=== PATIENT | male | born 1995 | race Two or more races ===

== ENCOUNTER 2019-03-22 16:53 | Emergency (ER) | payer OTHER ==
[2019-03-22 17:05] VITALS: BP 148/61
[2019-03-22] MEDS ORDERED: CEFTRIAXONE INJ 250 MG VIAL IM ONE (17:22)
[2019-03-22] MEDS ORDERED: LIDOCAINE 1% INJ-PF (10 MG/ML) 30 ML SDV INJ ONE (17:22)
[2019-03-22] MEDS ORDERED: AZITHROMYCIN 250 MG TABLET PO ONE (17:22)
--- NOTE | 2019-03-22 17:32 | ER Document Report ---
HPI - HPI Time Seen by Provider: 03/22/19 17:30 Notes: Patient is a 23-year-old male with no significant past medical history who presents complaining of a rash underneath the foreskin of his penis and to the head of the penis that is been present for 9 days. Patient states that he was having unprotected sex a couple weeks ago. He is otherwise able to eat and drink without difficulty. He is urinating normally and having normal bowel movements. He does not have any testicular pain or drainage from his urethra. He has not noticed any other rash or swelling. Patient states he does have a burning sensation occasional itching to that area. Patient states that it does feel kind of "raw." Denies drug allergies. No other concerns or complaints. Denies any headache, fever, neck pain, red eye, URI, sore throat, chest pain, palpitations, syncope, cough, shortness of breath, wheeze, dyspnea, abdominal pain, nausea/vomiting/diarrhea, urinary retention, dysuria, hematuria. - ROS Systems Reviewed and Negative: Yes All other systems reviewed and negative Past Medical History - Social History Smoking Status: Unknown if Ever Smoked Family History: Reviewed & Not Pertinent Vertical Provider Document - CONSTITUTIONAL Agree With Documented VS: Yes Notes: PHYSICAL EXAMINATION: GENERAL: Well-appearing, well-nourished and in no acute distress. HEAD: Atraumatic, normocephalic. EYES: Pupils equal round and reactive to light, extraocular movements intact, sclera anicteric, conjunctiva are normal. ENT: Nares patent and without discharge. oropharynx clear without exudates. No tonsilar hypertrophy or erythema. Moist mucous membranes. NECK: Normal range of motion, supple without lymphadenopathy LUNGS: Breath sounds clear to auscultation bilaterally and equal. No wheezes rales or rhonchi. HEART: Regular rate and rhythm without murmurs, rubs, gallops. ABDOMEN: Soft, nontender, nondistended abdomen. No guarding, no rebound. Normal bowel sounds present. No CVA tenderness bilaterally. : uncircumcised. There is a raw erythemic area with scant white drainage noted to to the neck/head of the penis with mild swelling associated. No urethral compromise or discharge. No ulceration or obvious herpetic lesion noted. Non-tender to palp throughout including scrotum/testicles. No inguinal hernia/adenopathy. Musculoskeletal: FROM to passive/active. Strength 5+/5. Extremities: No cyanosis, clubbing, or edema b/l. Peripheral pulses 2+. Capillary refill less than 3 seconds. NEUROLOGICAL: Normal speech, normal gait. PSYCH: Normal mood, normal affect. SKIN: see above Course - Re-evaluation Re-evalutation: 03/22/19 17:36 Patient is an afebrile, well-hydrated, 23-year-old male who presents with suspected candidal balanitis. Vitals are acceptable without significant tachycardia, tachypnea, or hypoxia. PE is otherwise unremarkable. Patient is nontoxic-appearing and is tolerating p.o. without difficulty. He did not have any lesions consistent with syphilis or herpes. No cankers noted. Chlamydia gonorrhea tests are pending per patient's request. He was also given Zithromax and Rocephin. Low suspicion for any testicular torsion, necrotizing fasciitis, SJS, SSS, drug reaction, sepsis, meningitis, syphilis, Lyme disease, [place] spotted fever, or other systemic emergent condition at this time. Patient aware that condition can change from initial presentation and he needs to monitor symptoms closely and seek medical attention with any acute changes. I will send him home with a prescription for clotrimazole. Conservative measures otherwise for symptoms. Recheck with your PCM in 2 to 3 days. Consider consult with urology. Check in with health department for further testing. Return to the ED with any other worsening/concerning symptoms as reviewed. Patient is in agreement. - Vital Signs Vital signs: Temp Pulse Resp BP Pulse Ox 98.5 F 78 16 148/61 H 100 03/22/19 17:04 03/22/19 17:04 03/22/19 17:04 03/22/19 17:04 03/22/19 17:04 Discharge - Discharge Clinical Impression: Candidal balanitis, Rash and nonspecific skin eruption Condition: Stable Disposition: HOME, SELF-CARE Additional Instructions: Keep the skin clean and dry Wash with soap and water Tylenol/ibuprofen if needed Take medication as directed Monitor for any worsening symptoms Recheck with your PCM in 3-5 days Consider checking with health department as well Your chlamydia and gonorrhea tests are pending and you may call tomorrow for your result Return to the ED with any worsening symptoms and/or development of fever, headache, chest pain, palpitations, syncope, shortness of breath, trouble breathing, abdominal pain, n/v/d, abscess, purulent discharge, red streaks, worsening swelling, or other worsening symptoms that are concerning to you. Prescriptions: Clotrimazole [Athletic Foot Cream] 1 applic TP BID #30 gm Forms: Elevated Blood Pressure Referrals: [facility] [NO LOCAL MD] - Follow up as needed [facility] [Provider Group] - Follow up as needed
[2019-03-22 19:36] LABS: CHLAM PCR NOT DETECTED (NOT DETECT)
== END 2019-03-22 17:46 | disposition home or self-care (01) ==
LOC: ER 16:53
DX: B37.42 Candidal balanitis (principal); R21 Rash and other nonspecific skin eruption; Z20.2 Contact with and (suspected) exposure to infections with a predominantly sexual mode of transmission
CPT/HCPCS: 87491; 87591; J0696; 96372; 99283